=== PATIENT | male | born 1975 | race Asian ===

== ENCOUNTER 2023-03-27 21:35 | Inpatient (IN) | payer MEDICARE, OTHER ==
[~2023-03-27] VITALS: Ht 167.6 cm; Wt 73.2 kg
[2023-03-27] MEDS ORDERED: LABETALOL HCL 5 MG/ML 20 ML VIAL IVP PRN ×2 (21:45)
[2023-03-27] MEDS ORDERED: IOHEXOL 350 MG/ML 100 ML VIAL ONE (21:50)
[2023-03-27] MEDS ORDERED: SODIUM CHLORIDE 0.9% 100 ML ONE (21:50)
[2023-03-27 22:36] LABS: APPEARANCE,URINE CLEAR (CLEAR); BILIRUBIN,URINE NEGATIVE (NEGATIVE); COLOR,URINE LIGHT YELLOW (YELLOW); GLUCOSE, URINE (UA) NEGATIVE (NEGATIVE); KETONES,URINE TRACE mg/dL (NEGATIVE); LEUKOCYTE ESTERASE ,URINE NEGATIVE (NEGATIVE); NITRATE,URINE NEGATIVE (NEGATIVE); OCCULT BLOOD,URINE NEGATIVE (NEGATIVE); PH,URINE 6.5 (5.0-8.0); PROTEIN,URINE NEGATIVE (NEGATIVE); SPECIFIC GRAVITIY, URINE 1.008 (1.003-1.030); UROBILINOGEN,URINE <=1.0 mg/dL (<=1.0)
[2023-03-27 22:41] LABS: ALCOHOL, URINE DRUG SCREEN NEGATIVE (NEGATIVE); AMPHET/METH SCREEN,URINE NEGATIVE (NEGATIVE); BARBITURATE SCREEN, URINE NEGATIVE (NEGATIVE); BENZODIAZEPINES SCREEN,URINE POSITIVE (NEGATIVE); CANNABINOID SCREEN,URINE NEGATIVE (NEGATIVE); COCAINE SCREEN,URINE NEGATIVE (NEGATIVE); METHADONE SCREEN, URINE NEGATIVE (NEGATIVE); OPIATE SCREEN,URINE NEGATIVE (NEGATIVE); PHENCYCLIDINE SCREEN,URINE NEGATIVE (NEGATIVE)
[2023-03-27 22:46] LABS: PH,URINE DRUG SCREEN 6.5 (5.0-8.0)
[2023-03-27 22:47] LABS: BASOPHILS % (AUTO) 0.6 % (0.0-2.0); EOSINOPHILS % (AUTO) 0.3 % (1.0-6.0); HEMATOCRIT 42.8 % (41-53); HEMOGLOBIN 13.4 g/dL (13.5-17.5); LYMPHOCYTES # (AUTO) 1.3 K/uL (1.0-4.8); LYMPHOCYTES % (AUTO) 11.2 % (22.0-44.0); MEAN CORPUSCULAR HEMOGLOBIN 24.8 pg (26.0-34.0); MEAN CORPUSCULAR HGB CONC 31.4 G/dL (31.0-37.0); MEAN CORPUSCULAR VOLUME 79 fL (80-100); MONOCYTES % (AUTO) 8.3 % (2.0-9.0); NEUTROPHILS # (AUTO) 9.2 K/uL (1.8-7.7); NEUTROPHILS % (AUTO) 79.6 % (40.0-70.0); PLATELET COUNT (AUTO) 169 K/uL (150-450); RED BLOOD CELL COUNT(AUTO) 5.42 MIL/uL (4.50-5.90); RED CELL DISTRIBUTION WIDTH 15.4 % (11.5-14.5); WHITE BLOOD COUNT (AUTO) 11.6 K/uL (4.5-11.0)
[2023-03-27 22:53] LABS: BACTERIA,URINE None Seen /HPF (None Seen); RBC,URINE None Seen /HPF (0-2); SQUAMOUS EPITHELIAL CELL,UR None Seen /LPF (None Seen); WBC,URINE None Seen /HPF (0-5)
[2023-03-27 23:05] LABS: ANION GAP 7 mmol/L (8-16); CALCIUM, TOTAL 9.2 mg/dL (8.8-10.5); CARBON DIOXIDE 31 mmol/L (22-29); CHLORIDE 94 mmol/L (98-107); CREATININE 0.82 mg/dL (0.60-1.30); GLOMERULAR FILTR. RATE CALC > 60 mL/min (>60); GLUCOSE,RANDOM 109 mg/dL (70-110); POTASSIUM 3.5 mmol/L (3.5-5.1); SODIUM SERUM 131 mmol/L (136-145); UREA NITROGEN, BLOOD 7 mg/dL (7-18)
[2023-03-27 23:18] LABS: ALANINE AMINOTRANSFERASE 30 U/L (12-78); ALKALINE PHOSPHATASE 87 U/L (46-116); ASPARTATE AMINOTRANSFERASE 20 U/L (15-37); BILIRUBIN,TOTAL 0.6 mg/dL (0.1-1.0); TOTAL PROTEIN, SERUM 7.3 g/dL (6.4-8.2)
[2023-03-27 23:20] LABS: TROPONIN I-HIGH SENSITIVITY 5 ng/L (<76)
[2023-03-27] MEDS ORDERED: ASPIRIN 81 MG CHEWABLE TABLET PO ONE (23:45)
[2023-03-27 23:54] LABS: PROTHROMBIN TIME 10.6 SEC (9.4-11.6)
[2023-03-28] MEDS ORDERED: DIAZ10 PO (00:23)
[2023-03-28] MEDS ORDERED: OMEP20 PO (00:23)
[2023-03-28] MEDS ORDERED: BACL10TA PO (00:23)
[2023-03-28] MEDS ORDERED: OXYC-490 PO (00:23)
[2023-03-28] MEDS ORDERED: GABA-1181 PO (00:23)
[2023-03-28] MEDS ORDERED: DULO-114 PO (00:23)
[2023-03-28] MEDS ORDERED: IBUP-1493 PO (00:23)
[2023-03-28] MEDS ORDERED: ACETAMINOPHEN 325 MG TABLET PO PRN (00:45)
[2023-03-28] MEDS ORDERED: ONDANSETRON HCL 4 MG/2 ML VIAL IVP PRN (00:45)
[2023-03-28 01:11] LABS: HEMOGLOBIN A1C 5.4 % (3.8-5.6)
[2023-03-28 01:12] LABS: CHOL/HDL RATIO 4.8 (4.2-7.3)
[2023-03-28 01:18] LABS: SODIUM,URINE RANDOM 9 mmol/l (20-110)
[2023-03-28 01:32] LABS: OSMOLALITY,URINE 177 mOsm/kg (50-1500)
[2023-03-28] MEDS ORDERED: NICOTINE 14 MG/24 HOUR PATCH TD SCH (03:00)
[2023-03-28] MEDS ORDERED: DULoxetine HCL 30 MG CAPSULE PO SCH ×2 (03:00→21:00)
[2023-03-28] MEDS: BACLOFEN 10 MG TABLET PO SCH ×2 (03:51→12:32)
[2023-03-28 04:03] VITALS: BP 118/80; PULSE 67; RESP 18; TEMP 98
[2023-03-28 07:16] LABS: TROPONIN I-HIGH SENSITIVITY 5 ng/L (<76)
[2023-03-28 07:24] VITALS: BP 140/86; PULSE 88; RESP 19; TEMP 98
[2023-03-28] MEDS: HEPARIN SODIUM,PORCINE 5,000 UNITS/ML VIAL SQ SCH ×2 (08:23→15:49)
[2023-03-28] MEDS ORDERED: DOCUSATE SODIUM 100 MG CAPSULE PO SCH (09:00)
[2023-03-28] MEDS ORDERED: ASPIRIN 81 MG CHEWABLE TABLET PO SCH (09:00)
[2023-03-28 09:30] LABS: TROPONIN I-HIGH SENSITIVITY 7 ng/L (<76)
[2023-03-28 11:59] VITALS: BP 103/66; PULSE 69; RESP 18; TEMP 97.7
[2023-03-28] MEDS ORDERED: ROPI0.5T37 PO (13:43)
[2023-03-28] MEDS ORDERED: PRAV20TA4 PO (13:43)
[2023-03-28] MEDS ORDERED: OxyCODONE HCL/ACETAMINOPHEN 10-325 MG TABLET PO PRN (15:45)
[2023-03-28] MEDS ORDERED: DIAZEPAM 5 MG TABLET PO PRN (15:45)
[2023-03-28] MEDS ORDERED: IBUPROFEN 800 MG TABLET PO PRN (15:45)
[2023-03-28] MEDS ORDERED: BACLOFEN 10 MG TABLET PO SCH (16:00)
[2023-03-28] MEDS ORDERED: GABAPENTIN 300 MG CAPSULE PO SCH (16:00)
[2023-03-28 16:32] VITALS: BP 117/79; PULSE 77; RESP 18; TEMP 98.1
[2023-03-28] MEDS ORDERED: OMEPRAZOLE 20 MG CAPSULE PO SCH (21:00)
[2023-03-28] MEDS ORDERED: ATORVASTATIN CALCIUM 40 MG TABLET PO SCH (21:00)
[2023-03-29] MEDS ORDERED: PRAVASTATIN SODIUM 20 MG TABLET PO SCH (09:00)
== END 2023-03-28 19:06 | disposition left against medical advice (07) | DRG 69 ==
LOC: EMS 21:36 → 5S 03-28 01:32
PROVIDERS: ADMIT Internal Medicine; ATTEND Internal Medicine
DX: G45.9 Transient cerebral ischemic attack, unspecified (principal); G92.8 Other toxic encephalopathy; E87.1 Hypo-osmolality and hyponatremia; R47.01 Aphasia; D72.829 Elevated white blood cell count, unspecified; E78.00 Pure hypercholesterolemia, unspecified; I10 Essential (primary) hypertension; G89.29 Other chronic pain; F17.210 Nicotine dependence, cigarettes, uncomplicated; G62.9 Polyneuropathy, unspecified; F41.9 Anxiety disorder, unspecified; F32.A Depression, unspecified; Z53.29 Procedure and treatment not carried out because of patient's decision for other reasons; G25.81 Restless legs syndrome; T42.4X5A Adverse effect of benzodiazepines, initial encounter; Y92.89 Other specified places as the place of occurrence of the external cause; Z91.041 Radiographic dye allergy status; Z91.013 Allergy to seafood; Z79.899 Other long term (current) drug therapy
CPT/HCPCS: 70496; 70498; 71045; 80053; 80061; 80307; 81001; 82948; 83036; 83930; 83935; 84300; 84484; 85025; 85610; 85730; 86850; 86900; 86901; 92610; 93005; 93306; 99291; G0480; J1644; J7050; Q9967; 36415-L1; 36415-TC; 70450; 70450-TC